=== PATIENT | male | born 1960 | race Caucasian/White ===

== ENCOUNTER 2022-11-12 02:22 | Emergency (ER) | payer MEDICAID ==
[~2022-11-12] VITALS: Ht 180.3 cm; Wt 128.8 kg
[2022-11-12 02:33] VITALS: BP_SYST 174
[2022-11-12] MEDS ORDERED: KETOROLAC TROMETHAMINE 60 MG/2 ML VIAL IM ONE (03:00)
[2022-11-12 03:10] VITALS: BP_SYST 158
[2022-11-12] MEDS ORDERED: HYDR-3917 PO (03:16)
== END 2022-11-12 03:43 | disposition home or self-care (01) ==
LOC: SED 02:22
DX: M54.50 Low back pain, unspecified (principal); I10 Essential (primary) hypertension; Z79.899 Other long term (current) drug therapy
CPT/HCPCS: 99283; 96372; J1885